=== PATIENT | female | born 1980 | race Caucasian/White ===

== ENCOUNTER → 2017-12-10 | Outpatient (CLI) | payer OTHER | END | disposition home or self-care (01) | LOC: LAB EV 14:02 | DX: R50.9 Fever, unspecified (principal) | CPT/HCPCS: 87070 ==

== ENCOUNTER 2021-04-16 06:57 | Observation (INO) | payer OTHER ==
[~2021-04-16] VITALS: Ht 172.7 cm; Wt 158.8 kg
[2021-04-16] MEDS ORDERED: NAPR500 PO (07:08)
[2021-04-16] MEDS ORDERED: ACET500 PO (07:08)
[2021-04-16] MEDS ORDERED: CLIN150 PO (07:08)
[2021-04-16] MEDS ORDERED: ESCI20 PO (07:08)
[2021-04-16] MEDS ORDERED: Bupropion HCl100 MG PO (07:09)
[2021-04-16] MEDS ORDERED: ALBU90OI INH (07:09)
[2021-04-16] MEDS ORDERED: ZYRTEC10 M2 PO (07:09)
--- NOTE | 2021-04-16 10:40 | NUR ---
PT ARRIVED TO UNIT AT APROX 1015 FROM ER. PT SBA TO BED. LUE IN SPLINT COVERED WITH KE WRAP, PAINFUL WITH MOVEMENT BUT PT REPORTS PAIN IS TOLERABLE WHEN AT REST.PT IS ABLE TO WIGGLE FINERS, CAP REFILL WNL, REPORTS FULL SENSATION. LUNGS CLEAR T/O.
[2021-04-16 16:07] LABS: SARS-Cov-2 (COVID-19) PCR, MMC NEGATIVE (NEGATIVE)
--- NOTE | 2021-04-16 17:57 | NUR ---
SHIFT SUMMARY PT HAS DONE WELL SINCE ARRIVAL TO UNIT. PT PAIN MANAGED PER EMAR. TOLERATING REGULAR DIET, WILL BE MADE NPO AT MIDNIGHT WITH PLANS TO GO TO OR TOMORROW AT [address] KOEHLER.
--- NOTE | 2021-04-17 05:27 | NUR ---
PATIENT A/OX4. VSS ON RA. PAIN MANAGED WELL W/ IV DILAUDID. L ARM ELEVATED ON PILLOWS. UP TO TOILET. NPO AT MIDNIGHT FOR POSSIBLE PROCEDURE. CONTINOUS IV LUIDS RESTARTED AT MIDNIGHT. USING CALL LIGHT TO MAKE NEEDS KNOWN.
--- NOTE | 2021-04-17 08:32 | NUR ---
PT TO DAY SURGERY AT APROX 0800 VIA [facility].
--- NOTE | 2021-04-17 11:44 | NUR ---
PT ARRIVED BACK TO UNIT FROM PACU AT APROX 1130. KE WRAP ON LUE FROM ELBOW TO SHOULDER C/D/I. PT REPORTS FULL SENSATION, WIGGLES FINGERS ON COMMAND, HAND PINK AND WARM. PT MEDICATED WITH ZOFRAN UPON ARRIVAL R/T EMESIS X'S 1 AND NAUSEA.
[2021-04-17] MEDS ORDERED: ROXICODONE5 MG PO (12:21)
--- NOTE | 2021-04-17 14:58 | NUR ---
DISCHARGE PT LEFT AT 1445 VIA WHEELCHAIR WITH FAMILY. SCRIPT SENT WITH FAMILY PRIOR TO DISCHARGE TO WILDLIFE PHOTOGRAPHER AT PHARMACY FOR PT. PT REPORTED PAIN WAS TOLERABLE WITH PO AND WAS ABLE TO MOVE WELL IN BED WITH MINIMAL PAIN. PT EDUCATED ON NWB STATUS OF HER LEFT ARM, SHE STATED UNDERSTANDING. DISCHARGE INFORMATION GONE OVER WITH PATIENT. DECLINED FURTHER QUESTIONS. ALL BELONGINGS SENT WITH PT. IV REMOVED PRIOR TO DISCHARGE. SPLINT CDI. FULL SENSATION IN FINGERS, DENIES NUMBNESS.
== END 2021-04-17 14:45 | disposition home or self-care (01) ==
LOC: ER 06:57 → SURS 06:59
PROVIDERS: ADMIT Orthopaedic Surgery
PROC: 0PSG04Z Reposition Left Humeral Shaft with Internal Fixation Device, Open Approach (ICD-10-PCS; principal; 2021-04-16)
DX: S42.352A Displaced comminuted fracture of shaft of humerus, left arm, initial encounter for closed fracture (principal); W01.198A Fall on same level from slipping, tripping and stumbling with subsequent striking against other object, initial encounter; E66.01 Morbid (severe) obesity due to excess calories; Y93.E6 Activity, residential relocation; Y92.9 Unspecified place or not applicable; Z68.43 Body mass index [BMI] 50.0-59.9, adult; Z20.822 Contact with and (suspected) exposure to COVID-19
CPT/HCPCS: 29125; 36415; 73030; 73070; 81025; 96374-59; 96375-59; 96376; 96376-59; 99285-25; A9270; C1713; G0378; J0690; J1100; J1170; J1885; J2250; J2405; J2704; J3010; J7030; J7120; U0004